=== PATIENT | female | born 1995 | race Caucasian/White ===

== ENCOUNTER 2018-02-13 06:45 | Inpatient (IN) | payer OTHER ==
[~2018-02-13] VITALS: Ht 165.1 cm; Wt 84.1 kg
[2018-02-17] MEDS ORDERED: ZANTAC 150MG T150 MG PO (19:11)
[2018-02-17] MEDS ORDERED: PRENATAL MVI PO (19:11)
[2018-02-17] MEDS ORDERED: NATURAL IRON65 MG PO (19:12)
[2018-02-17] MEDS ORDERED: STOOL SOFTENER100 M2 PO (19:12)
[2018-03-04] VITALS (46 sets, daily range): BP systolic 99–136; BP diastolic 55–82; PULSE 82–121; TEMP 98.1–100
[2018-03-04 08:18] LABS: HEMATOCRIT 32.3 % (37.0-47.0); HEMOGLOBIN 10.3 g/dl (12.5-16.0); MEAN CELL VOLUME 91 fl (80.0-100.0); MEAN CORPUSCULAR HEMOGLOBIN 29 pg (27.0-31.0); MEAN CORPUSCULAR HGB CONC 32 g/dl (33.0-37.0); MEAN PLATELET VOLUME 10.7 fl (7.4-10.4); PLATELET COUNT 256 K/mm3 (130-400); RED BLOOD COUNT 3.55 M/mm3 (4.10-5.30); REDCELL DISTRIBUTION WIDTH-CV 14.5 % (11.5-14.5)
[2018-03-04 09:19] LABS: BAND 23 % (0-10); LYMPHOCYTE 15 % (20.0-51.0); METAMYELOCYTE 1 % (0-0); NEUTROPHILS 55 % (42.0-75.2); PLATELET ESTIMATE NORMAL (NORMAL)
[2018-03-05 02:00] VITALS: BP 107/52; PULSE 83; TEMP 97.8
[2018-03-05] MEDS ORDERED: MOTRIN 800800 MG/TAB PO (07:20)
[2018-03-05] MEDS ORDERED: PERCOCET 325 MG1 TA2 PO (07:20)
[2018-03-05 08:21] VITALS: BP 107/64; PULSE 85; TEMP 97.5
[2018-03-05 12:30] VITALS: BP 115/58; PULSE 81; TEMP 98.1
== END 2018-03-05 17:33 | disposition home or self-care (01) | DRG 775 ==
LOC: LDR 02-25 06:45 → OB 03-04 07:30 → LDR 03-04 07:30 → OB 03-04 21:07
PROVIDERS: Obstetrics & Gynecology
PROC: 10E0XZZ Delivery of Products of Conception, External Approach (ICD-10-PCS; principal; 2018-03-04)
PROC: 10907ZC Drainage of Amniotic Fluid, Therapeutic from Products of Conception, Via Natural or Artificial Opening (ICD-10-PCS; 2018-03-04)
PROC: 3E033VJ Introduction of Other Hormone into Peripheral Vein, Percutaneous Approach (ICD-10-PCS; 2018-03-04)
DX: O48.0 Post-term pregnancy (principal); Z3A.41 41 weeks gestation of pregnancy; Z37.0 Single live birth; O99.02 Anemia complicating childbirth; O75.89 Other specified complications of labor and delivery
CPT/HCPCS: J1200; J2210; J2590; J2791; J7120

== ENCOUNTER 2018-02-17 18:43 | Outpatient (CLI) | payer OTHER ==
[~2018-02-17] VITALS: Ht 165.1 cm; Wt 83.2 kg
[2018-02-17 19:07] VITALS: BP 123/69; PULSE 90
[2018-02-17] MEDS ORDERED: ZANTAC 150MG T150 MG PO (19:11)
[2018-02-17] MEDS ORDERED: PRENATAL MVI PO (19:11)
[2018-02-17] MEDS ORDERED: NATURAL IRON65 MG PO (19:12)
[2018-02-17] MEDS ORDERED: STOOL SOFTENER100 M2 PO (19:12)
== END 2018-02-17 19:30 | disposition home or self-care (01) ==
LOC: LDRO 18:43
DX: O42.92 Full-term premature rupture of membranes, unspecified as to length of time between rupture and onset of labor (principal); Z3A.38 38 weeks gestation of pregnancy

== ENCOUNTER 2019-09-01 07:09 | Outpatient (CLI) | payer OTHER ==
[~2019-09-01] VITALS: Ht 165.1 cm; Wt 84.5 kg
[2019-09-01 06:32] VITALS: BP 117/67; PULSE 93; TEMP 97.8
[~2019-09-01 07:09] MED LIST: MOTRIN 800800 MG/TAB PO; NATURAL IRON65 MG PO; PERCOCET 325 MG1 TA2 PO; PRENATAL MVI PO; STOOL SOFTENER100 M2 PO; ZANTAC 150MG T150 MG PO
[2019-09-01] MEDS ORDERED: TYLENOL PM EXTR1 TA1 PO (07:33)
[2019-09-01] MEDS ORDERED: PRENATAL TABLET PO (07:34)
--- NOTE | 2019-09-01 07:45 | NUR ---
0725 G3L2 at 37.4 weeks gestation to LDR2 with for external version. Patient changed into gown and wedged to left side in bed. EFMs explained and applied. FHR 125 bpm and reactive. Irritable CTX pattern per toco, patient denies feeling them. VSS. Assessment completed. Consents signed. 3095 IV started in left hand. Plan of care reviewed.
--- NOTE | 2019-09-01 07:53 | NUR ---
0746 - Dr. Hsieh at bedside, breech presentation confirmed by sono. 0753 - External version successful by Dr. Hsieh. EFMs reapplied, FHR 130 bpm. Plan of care reviewed.
[2019-09-01 08:15] VITALS: BP 116/64; PULSE 93
[2019-09-01 08:45] VITALS: BP 110/61; PULSE 95
--- NOTE | 2019-09-01 08:55 | NUR ---
INT DC'd, discharge instructions reviewed, patient discharged home.
== END 2019-09-01 09:05 | disposition home or self-care (01) ==
LOC: LDRO 07:09
DX: Z3A.37 37 weeks gestation of pregnancy (principal)
CPT/HCPCS: J3105

== ENCOUNTER 2019-09-11 07:04 | Inpatient (IN) | payer OTHER ==
[2019-09-11] VITALS (67 sets, daily range): BP systolic 103–1199; BP diastolic 45–78; PULSE 68–109; TEMP 97.8–99
[~2019-09-11] VITALS: Ht 165.2 cm; Wt 85.5 kg
[~2019-09-11 07:04] MED LIST changes: +PRENATAL TABLET PO; +TYLENOL PM EXTR1 TA1 PO
--- NOTE | 2019-09-11 07:10 | NUR ---
0710-G3L2 39.[address] Greenfield ambulatory to LR [address] Hsieh on unit. Patient assisted into gown and placed on EFM. Reports good movement, carolee LOF or VB. VSS> 0720-IV to Left forearm. Blood collected and sent lab, LR infusing, see EMAR. 0728-Dr. Hsieh to room,reviews plan of care. SVE /-3, intact and vertex per MD. 0730-Pitocin started per MD order and protocol at 2mu/min 0756-Patient moved toco strabrisa, RN readusts EFM. 0853-Patient off EFM to bathroom, voids 300ml Clear yellow urine. 0900-Returns to bed WL, no needs at this time.
[2019-09-11 08:00] LABS: MEAN CELL VOLUME 94 fl (80.0-100.0); MEAN CORPUSCULAR HEMOGLOBIN 31 pg (27.0-31.0); MEAN CORPUSCULAR HGB CONC 33 g/dl (33.0-37.0); MEAN PLATELET VOLUME 10.5 fl (7.4-10.4); PLATELET COUNT 297 K/mm3 (130-400); RED BLOOD COUNT 3.58 M/mm3 (4.10-5.30); REDCELL DISTRIBUTION WIDTH-CV 14.9 % (11.5-14.5)
[2019-09-11 08:02] LABS: HEMATOCRIT 33.8 % (37.0-47.0)
[2019-09-11 08:17] LABS: BAND 2 % (0-10); BASOPHIL 2 % (0-2); EOSINOPHIL 1 % (0-4); LYMPHOCYTE 29 % (20.0-51.0); NEUTROPHILS 60 % (42.0-75.2)
[2019-09-11 08:19] LABS: PLATELET ESTIMATE NORMAL (NORMAL)
--- NOTE | 2019-09-11 11:43 | NUR ---
1143-Dr. Hsieh on unit. Reviews FHR monitor. In to see patient. 1144-SVE by MD, 3cm per MD. MD requests bedside sono 1145-Bedside sono per MD. Patient confirms breech, pitocin off per MD orders. Discusses plan of care with patient. Patient requests epidural now and attempt version.
--- NOTE | 2019-09-11 11:50 | NUR ---
1150- IVF bolus. BRIGIDA Fernando notified.
--- NOTE | 2019-09-11 11:55 | NUR ---
1155-Patient to athroom.Patient sitting upright for epidural. 1206-BRIGIDA Fernando to room, reviews epidural placement with patient. 1218-SS administered by BRIGIDA Fernando, VSS see flow record. 1225-Repositioned WL. Updated on safety and plan of care. 1235-Dr. Hsieh updated, see physician notification. 1255-Lim to DD, clear yellow urine. 1300-Dr. Hsieh to unit. Reviews FHR monitor. Bedside sono by . 1302-External Version by Dr. Hsieh. Sono confirmation of FHR and Vertex presentation. 1303-SVE by /-2, AROM clear fluid noted. Shamika care provided. Repositoned WL. 1345-Pitocin started per MD order and protocol at 2mu/min. Updated patient on plan of care.
--- NOTE | 2019-09-11 18:15 | NUR ---
1819- BEDSIDE REPORT RECEIVED, PT SLEEPING. 1844- SVE UNCHANGED AT THIS TIME, DISCUSSED POSSIBLE PLAN OF CARE WITH PT INCLUDING POSSIBILITY OF C/S, QUESTIONS ANSWERED. 1899- DR ROMERO CALLED CHARTED. 1902- PITOCIN INCREASED. 1949- PT REPORTS NO INCREASED DISCOMFORT OR PRESSURE. 2049- SVE UNCHANGED BY THIS NURSE. DISCUSSED PLAN OF CARE WITH PT. 2106- DR ROMERO CALLED AND UPDATED ON UNCHANGED CERVICAL EXAM. ALSO INFORMED HIM THAT DR DE LEON AND ANESTHESIA WERE STILL IN SURGERY IN MAIN OR. DR ROMERO STATES HE WILL SEE WHAT HE CAN DO FOR ANESTHESIA AND CALL BACK. 2113- DR ROMERO CALLS AND STATES HE HAS FOUND RICHARD ALLRED TO COME IN FOR ANESTHESIA. HE WILL COME TO ASSESS AT BEDSIDE AND PROBABLY PROCEED WITH . CHARGE NURSE AND CLAIM ADMINISTRATOR NOTIFIED. 2116- PT UPDATED ON PLAN OF CARE.
[2019-09-12] VITALS (10 sets, daily range): BP systolic 101–127; BP diastolic 52–74; PULSE 70–86; TEMP 97.3–98.5
[2019-09-12] MEDS ORDERED: MOTRIN 800800 MG/TAB PO (09:20)
[2019-09-12] MEDS ORDERED: PERCOCET 325 MG1 TA2 PO (09:21)
--- NOTE | 2019-09-12 11:45 | NUR ---
Pt complaining of pain 6-8/10 midline abdomen from umbilicus to incision, worse with movement. Dressing C/D/I, dressing removed. Incision clean and dry, no redness/swelling noted. Mild bruising below incision. Abdomen soft on palpation, fundus firm. Dr. Hsieh notified.
[2019-09-13 08:50] VITALS: BP 116/70; PULSE 86; TEMP 98
[2019-09-13 17:00] VITALS: BP 105/57; PULSE 82; TEMP 98.2
[2019-09-13 20:00] VITALS: BP 116/56; PULSE 76; TEMP 97.8
[2019-09-14 08:20] VITALS: BP 123/62; PULSE 89; TEMP 98.1
== END 2019-09-14 11:30 | disposition home or self-care (01) | DRG 788 ==
LOC: OB 07:04 → LDR 07:04 → OB 08:05
PROVIDERS: ADMIT Obstetrics & Gynecology
PROC: 10D00Z1 Extraction of Products of Conception, Low, Open Approach (ICD-10-PCS; principal; 2019-09-11)
PROC: 10907ZC Drainage of Amniotic Fluid, Therapeutic from Products of Conception, Via Natural or Artificial Opening (ICD-10-PCS; 2019-09-11)
PROC: 3E033VJ Introduction of Other Hormone into Peripheral Vein, Percutaneous Approach (ICD-10-PCS; 2019-09-11)
DX: O61.9 Failed induction of labor, unspecified (principal); O32.1XX0 Maternal care for breech presentation, not applicable or unspecified; O99.02 Anemia complicating childbirth; D64.9 Anemia, unspecified; O99.62 Diseases of the digestive system complicating childbirth; K21.9 Gastro-esophageal reflux disease without esophagitis; O26.893 Other specified pregnancy related conditions, third trimester; Z3A.39 39 weeks gestation of pregnancy; Z37.0 Single live birth; Z67.11 Type A blood, Rh negative
CPT/HCPCS: J0690; J1885; J2175; J2210; J2250; J2270; J2370; J2400; J2405; J2590; J2791; J3010; J7120